=== PATIENT | female | born 1950 | race Caucasian/White ===

== ENCOUNTER 2017-06-09 07:30 | Inpatient (IN) | payer MEDICARE, MEDICAID ==
[~2017-06-09 07:30] MED LIST: Acetaminophen 500 MG Tab PO ONE; Gabapentin 300 MG Cap PO ONE; Scopolamine 1.5 MG Transdermal Patch TOP SCH; ceFAZolin 2 GM in Premix Bag 1 BAG IV ONE
[2017-06-09] MEDS ORDERED: Ketamine 500 MG/5 ML MDV IV SCH (09:00)
[2017-06-09] MEDS ORDERED: Ropivacaine 49.25 ML, Ketorolac 30 MG, EPINEPHrine 0.5 MG, cloNIDine 80 MCG, Sodium Chl... INJECT ONE ×5 (09:00)
[2017-06-09] MEDS ORDERED: Tranexamic Acid 3,000 MG, Sodium Chloride 0.9% 100 ML TOP SCH ×2 (09:00)
[2017-06-09] MEDS ORDERED: Gentamicin 40 MG/ML 2 ML Vial ONE (10:02)
[2017-06-09] MEDS ORDERED: Povidone-Iodine 10% Soln 118.25 ML Bottle ONE (10:02)
[2017-06-09] MEDS: Lactated Ringers 1,000 ML IV SCH (10:13)
[2017-06-09] MEDS ORDERED: Vancomycin 1 GM SDV ONE (11:05)
[2017-06-09] MEDS ORDERED: Midazolam 1 MG/ML 2 ML SDV ONE (12:32)
[2017-06-09] MEDS ORDERED: Propofol 200 MG/20 ML SDV ONE ×2 (12:32→14:54)
[2017-06-09] MEDS ORDERED: fentaNYL 100 MCG/2 ML SDV ONE (12:32)
[2017-06-09] MEDS ORDERED: Lactated Ringers 1,000 ML ONE (14:11)
[2017-06-09] MEDS ORDERED: ePHEDrine 50 MG/ML SDV ONE (14:24)
[2017-06-09] MEDS ORDERED: Aluminum Hydroxide/Magnesium Hydroxide/Simethicone Susp 30 ML Cup PO PRN (15:37)
[2017-06-09] MEDS ORDERED: Morphine 2 MG/ML Syringe IVPUSH PRN (15:37)
[2017-06-09] MEDS ORDERED: traMADol 50 MG Tab PO PRN (15:37)
[2017-06-09] MEDS ORDERED: Naloxone 0.4 MG/ML SDV IVPUSH PRN (15:37)
[2017-06-09] MEDS ORDERED: diphenhydrAMINE 50 MG/ML SDV IVPUSH PRN (15:37)
[2017-06-09] MEDS ORDERED: Zolpidem 5 MG Tab PO PRN (15:37)
[2017-06-09] MEDS ORDERED: ceFAZolin 2 GM in Sodium Chloride 0.9% 50 ML IV SCH (15:45)
[2017-06-09] MEDS ORDERED: Acetaminophen 1,000 MG in Premix Bag 1 BAG IV ONE (16:00)
[2017-06-09] MEDS ORDERED: Diazepam 5 MG Tab PO PRN (16:36)
[2017-06-09] MEDS: oxyCODONE 5 MG Tab PO PRN ×2 (17:47→21:49)
[2017-06-09] MEDS: Ondansetron 4 MG/2 ML SDV IVPUSH PRN (19:11)
--- NOTE | 2017-06-09 20:03 | OR ---
DATE OF PROCEDURE: 06/09/2017 PREOPERATIVE DIAGNOSIS: Left hip osteoarthritis, primary. POSTOPERATIVE DIAGNOSIS: Left hip osteoarthritis, primary. PROCEDURE: Left hip, total hip arthroplasty. RV DETAILER: JOSE MARTIN Hung. Physician processing assistant, Katty Mao NP, played an essential role in assisting in this case, helping to position the patient, retract structures as needed, as well as suturing and cutting sutures as indicated. Her presence improved patient's safety and decreased operative time. ANESTHESIA: Spinal plus conscious sedation. FLUID: Lactated Ringer solution. ESTIMATED BLOOD LOSS: 50 mL. COMPLICATIONS: None. SPECIMEN: None. DISCHARGE DISPOSITION: Stable to PACU. INSTRUMENTATION: Biomet G7 acetabular shell, 48 mm C, two 6.5 x 20 mm screws, a G7 acetabular liner neutral with E1 antioxidant 32 mm C, a Taper Lock complete micro primary femoral porous-coated stem reduced distal, 13 x 111 standard offset type 1 taper, cementless and a -3 mm x 32 mm neck. INDICATIONS: The patient was seen preoperatively in the clinic. She had failed nonoperative treatment. Risks and benefits of the procedure were explained to the patient. Informed consent was obtained. Preoperative imaging confirmed the above-mentioned diagnosis. DESCRIPTION OF PROCEDURE: The patient was seen preoperatively by myself and the Anesthesia Staff in the preop holding area where the operative site was marked. She was brought to the operative suite by Anesthesia Staff where spinal anesthesia plus conscious sedation was administered. All extremities were well padded. She was placed into a right lateral recumbent position on a pegboard. All extremities were found to be well padded. The left lower extremity was then prepped and draped in a sterile manner. Time-out was called identifying the correct patient, the correct procedure, the correct site, and antibiotics had begun within appropriate period of time. An incision was made 5 cm proximal to the greater trochanter, 5 cm distally along the femoral shaft just anteriorly and then carried down to the deep fascia. Bleeding was controlled with Bovie electrocautery and an Aquamantys during the case. The Gelpi was used for retraction. I then went through the gluteus medius, gluteus minimus, and capsule with Bovie electrocautery from the level of lesser trochanter up to the greater trochanter. I then put sharp Homans on each side of the femoral neck and then went through the capsule longitudinally up to the level of the acetabulum. I then protected the femoral neck with two sharp Homans and then made two saw cuts. I then removed the portion of the neck and then used a corkscrew to remove the femoral head which measured 45 mm, which was consistent with my preoperative templating. I then removed some soft tissue from inside the fovea with a curette as well as rongeurs. I then removed part of the labrum with a deep 10 blade. I then started using a 40 mm reamer down to the medial wall and then sequentially reamed up to 47. We then copiously irrigated with saline and then trialed with a 48 and then placed my final implant and then placed drill two 20 mm screws and then placed a 20 mm screws. After this had been completed, I placed the liner and tapped it into place. After this had been performed, we copiously irrigated again with saline. I then externally rotated the hip and flexed slightly. I then exposed the greater trochanter, used a curette to enter the canal, and then used a box hinge and lock attacher to remove any lateral bone near the greater trochanter. I then used a canal reamer to find the canal and then sequentially broached up to a 13. I felt this was adequate without any motion and then I trialed with a -3 neck. This provided excellent stability with no shuck. I then removed all of my femoral components, copiously irrigated with saline, and then placed my final components in place. This provided excellent range of motion with excellent stability and no shuck as well. We then closed the capsule with #5 Ethibond as well as the gluteus medius and minimus. Then, closed the IT band with #2 STRATAFIX, deep subcuticulars with #1 STRATAFIX, and subcutaneous 3-0 STRATAFIX followed by skin hai, followed by a sterile dressing. The patient was then transferred to hospital bed in supine position and taken to the PACU in stable condition. Anton Fraire DO /[id number]
[2017-06-09] MEDS: ceFAZolin 2 GM in Premix Bag 1 BAG IV SCH (20:08)
[2017-06-09] MEDS ORDERED: Docusate Sodium 100 MG Cap PO SCH (21:00)
[2017-06-09] MEDS ORDERED: Magnesium Hydroxide 400 MG/5 ML Susp 30 ML Cup PO SCH (21:00)
[2017-06-09] MEDS ORDERED: Sennosides 8.6 MG Tab PO SCH (21:00)
[2017-06-09] MEDS: Docusate Sodium 100 MG Cap PO SCH (21:50)
[2017-06-09] MEDS: Sennosides 8.6 MG Tab PO SCH (21:50)
[2017-06-09] MEDS: Magnesium Hydroxide 400 MG/5 ML Susp 30 ML Cup PO SCH (21:50)
[2017-06-10] MEDS ORDERED: Lactated Ringers 500 ML IV SCH (00:30)
[2017-06-10] MEDS: Lactated Ringers 1,000 ML IV SCH (03:09)
[2017-06-10] MEDS: Ketorolac 30 MG/ML SDV IVPUSH PRN ×2 (03:18→12:21)
[2017-06-10] MEDS: ceFAZolin 2 GM in Premix Bag 1 BAG IV SCH ×2 (04:15→12:26)
[2017-06-10] MEDS: oxyCODONE 5 MG Tab PO PRN ×2 (07:31→14:09)
[2017-06-10] MEDS ORDERED: Sodium Chloride 0.9% 10 ML Syringe FLUSH SCH (09:00)
[2017-06-10] MEDS ORDERED: Lactated Ringers 500 ML IV ONE (09:00)
[2017-06-10] MEDS ORDERED: Bisacodyl 5 MG Tab PO SCH (09:00)
--- NOTE | 2017-06-10 09:32 | CR ---
Pelvis 1V or 2V INDICATION: post op COMPARISON: 05/06/2017 FINDINGS: Single AP view of the pelvis left up arthroplasty new since the prior study. Skin hai in place. No acute bony abnormalities.
[2017-06-10] MEDS: Magnesium Hydroxide 400 MG/5 ML Susp 30 ML Cup PO SCH ×2 (10:33→22:20)
[2017-06-10] MEDS: Sennosides 8.6 MG Tab PO SCH ×2 (10:33→22:21)
[2017-06-10] MEDS: Docusate Sodium 100 MG Cap PO SCH ×2 (10:33→22:20)
[2017-06-10] MEDS: Aspirin 325 MG Tab.EC PO SCH (10:33)
[2017-06-10] MEDS: Sodium Chloride 0.9% 10 ML Syringe FLUSH SCH (10:34)
[2017-06-10] MEDS: Bisacodyl 5 MG Tab PO SCH (10:34)
[2017-06-10] MEDS: Ondansetron 4 MG/2 ML SDV IVPUSH PRN (13:24)
[2017-06-10] MEDS ORDERED: Aspirin 325 MG Tab.EC PO SCH (15:38)
[2017-06-10] MEDS: Acetaminophen/oxyCODONE 325-5 MG Tab PO PRN (19:53)
[2017-06-11] MEDS: Acetaminophen/oxyCODONE 325-5 MG Tab PO PRN ×2 (03:28→07:37)
[2017-06-11] MEDS: Ketorolac 30 MG/ML SDV IVPUSH PRN (06:19)
[2017-06-11] MEDS: Docusate Sodium 100 MG Cap PO SCH (08:51)
[2017-06-11] MEDS: Magnesium Hydroxide 400 MG/5 ML Susp 30 ML Cup PO SCH (08:51)
[2017-06-11] MEDS: Bisacodyl 5 MG Tab PO SCH (08:51)
[2017-06-11] MEDS: Aspirin 325 MG Tab.EC PO SCH (08:51)
[2017-06-11] MEDS: Sodium Chloride 0.9% 10 ML Syringe FLUSH SCH (08:51)
[2017-06-11] MEDS: Sennosides 8.6 MG Tab PO SCH (08:52)
--- NOTE | 2017-06-11 09:30 | PCM.DCSUM1 ---
Discharge Summary - Hospital Course Free Text/Narrative:: Patient is doing well at this time. She is POD 2 of a right total hip replacement. Pain is under control at this time. She is ambulating without any difficulties. - Discharge Data Discharge Date: 06/11/17 Discharge Disposition: Home, Self-Care 01 Condition: Good - Patient Summary/Data Consults: Consultations 06/09/17 15:38 OT Evaluation and Treatment [CONS] Routine Please Evaluate and Treat. OT Reason for Consult: Strengthening This query below is only for informational purposes and is not editable. PT Evaluation and Treatment [CONS] Routine Please Evaluate and Treat. PT Reason for Consult: Strengthening This query below is only for informational purposes and is not editable. - Patient Instructions Diet: Usual Diet as Tolerated Activity: Apply Ice, As Tolerated Driving: Do Not Drive Showering/Bathing: May Shower, No Tub Bathing/Swimming Wound/Incision Care: Keep Operative Site/Wound Site Clean and Dry, Change Dressing Daily Notify Provider of: Fever, Increased Pain, Swelling and Redness, Drainage, Nausea and/or Vomiting - Discharge Plan Prescriptions/Med Rec: Acetaminophen/oxyCODONE [Percocet 325-5 MG] 1 tab PO Q6HR #90 tablet Aspirin [Ecotrin] 325 mg PO DAILY #30 tab.ec Diazepam [Valium] 5 mg PO Q6H PRN #20 tablet PRN Reason: Spasms Docusate Sodium [Colace] 100 mg PO BID #30 cap Home Medications: Home Meds Ibuprofen 800 mg PO DAILY PRN 05/05/17 [History] Acetaminophen/oxyCODONE [Percocet 325-5 MG] 1 tab PO Q6HR #90 tablet 06/11/17 [ Rx] Aspirin [Ecotrin] 325 mg PO DAILY #30 tab.ec 06/11/17 [Rx] Diazepam [Valium] 5 mg PO Q6H PRN #20 tablet 06/11/17 [Rx] Docusate Sodium [Colace] 100 mg PO BID #30 cap 06/11/17 [Rx] Referrals: Katty Mao, [employer] [Nurse Practitioner] - (3 week follow up) - Patient Data Vitals - Most Recent: Last Vital Signs Temp 36.8 C 06/11/17 07:00 Pulse 88 06/11/17 07:00 Resp 18 06/11/17 07:00 BP 104/64 06/11/17 07:00 Pulse Ox 96 06/11/17 07:00 Weight - Most Recent: 117 lb 11.206 oz I&O - Last 24 hours: Intake & Output 06/10/17 06/11/17 06/11/17 22:59 06:59 14:59 Intake Total 600 780 240 Output Total 1100 300 650 Balance -500 480 -410 Lab Results - Last 24 hrs: Laboratory Results - last 24 hr 06/11/17 06/11/17 Range/Units 05:47 05:47 WBC 9.4 (4.5-11.0) K/uL RBC 3.08 L (3.30-5.50) M/uL Hgb 8.9 L (12.0-15.0) g/dL Hct 27.4 L (36.0-48.0) % MCV 89 (80-98) fL MCH 29 (27-31) pg MCHC 33 (32-36) % Plt Count 198 (150-400) K/uL Neut % (Auto) 80 H (36-66) % Lymph % (Auto) 10 L (24-44) % Anson % (Auto) 9 H (2-6) % Eos % (Auto) 1 L (2-4) % Baso % (Auto) 0 (0-1) % Sodium 139 L (140-148) mmol/L Potassium 4.2 (3.6-5.2) mmol/L Chloride 104 (100-108) mmol/L Carbon Dioxide 30 (21-32) mmol/L Anion Gap 9.2 (5.0-14.0) mmol/L BUN 7 (7-18) mg/dL Creatinine 0.7 (0.6-1.0) mg/dL Est Cr Clr Drug Dosing 56.02 mL/min Estimated GFR (MDRD) > 60 (>60) Glucose 119 H (74-106) mg/dL Calcium 8.3 L (8.5-10.1) mg/dL Total Bilirubin 0.6 (0.2-1.0) mg/dL AST 32 (15-37) U/L ALT 16 (12-78) U/L Alkaline Phosphatase 56 (46-116) U/L Total Protein 5.1 L (6.4-8.2) g/dL Albumin 2.7 L (3.4-5.0) g/dL Globulin 2.4 (2.3-3.5) g/dL Albumin/Globulin Ratio 1.1 L (1.2-2.2) Med Orders - Current: Current Medications Al Hydroxide/Mg Hydroxide (Mag-Al Plus) 30 ml PO Q4H PRN PRN Reason: Constipation Aspirin (Ecotrin) 325 mg PO DAILY [facility] Last Admin: 06/11/17 08:51 Dose: 325 mg Bisacodyl (Dulcolax) 10 mg PO DAILY [facility] Last Admin: 06/11/17 08:51 Dose: Not Given Diazepam (Valium.) 5 mg PO Q6H PRN PRN Reason: Spasms Last Admin: 06/10/17 10:36 Dose: 5 mg Diphenhydramine HCl (Benadryl) 25 mg IVPUSH Q4H PRN PRN Reason: Itching Docusate Sodium (Colace) 100 mg PO BID [facility] Last Admin: 06/11/17 08:51 Dose: Not Given Ketorolac Tromethamine (Toradol) 15 mg IVPUSH Q8H PRN PRN Reason: Pain Stop: 06/14/17 15:38 Last Admin: 06/11/17 06:19 Dose: 15 mg Magnesium Hydroxide (Milk Of Magnesia) 30 ml PO BID [facility] Last Admin: 06/11/17 08:51 Dose: Not Given Morphine Sulfate (Morphine) 2 mg IVPUSH Q2H PRN PRN Reason: Pain Ondansetron HCl (Zofran) 8 mg IVPUSH Q4H PRN PRN Reason: Nausea/Vomiting Last Admin: 06/10/17 13:24 Dose: 8 mg Oxycodone/Acetaminophen (Percocet 325-5 Mg) 2 tab PO Q4H PRN PRN Reason: Pain Last Admin: 06/11/17 07:37 Dose: 2 tab Senna (Senna) 8.6 mg PO BID [facility] Last Admin: 06/11/17 08:52 Dose: Not Given Sodium Chloride (Saline Flush) 10 ml FLUSH DAILY [facility] Last Admin: 06/11/17 08:51 Dose: 10 ml Tramadol HCl (Ultram) 100 mg PO Q6H PRN PRN Reason: Pain Zolpidem Tartrate (Ambien) 5 mg PO BEDTIME PRN PRN Reason: Sleep Discontinued Medications Acetaminophen (Tylenol Extra Strength) 1,000 mg PO ONETIME ONE Stop: 06/09/17 07:31 Last Admin: 06/09/17 08:53 Dose: 1,000 mg Aspirin (Ecotrin) 325 mg PO DAILY [facility] Bisacodyl (Dulcolax) 10 mg PO DAILY [facility] Ropivacaine 49.25 ml/Ketorolac Tromethamine 30 mg/Epinephrine HCl 0.5 mg/ Clonidine HCl 80 mcg/ Sodium Chloride 48.45 ml 0 ml INJECT ONETIME ONE Stop: 06/09/17 09:01 Last Admin: 06/09/17 14:52 Dose: 100 ml Tranexamic Acid 3,000 mg/ (Sodium Chloride 100 ml) 0 mg TOP ASDIRECTED [facility] Stop: 06/09/17 09:01 Last Admin: 06/09/17 14:53 Dose: 100 bag Diazepam (Valium) 5 mg IVPUSH Q6H PRN PRN Reason: Spasms Docusate Sodium (Colace) 100 mg PO BID [facility] Ephedrine Sulfate (Ephedrine Sulfate) Confirm Administered Dose 50 mg .ROUTE .STK-MED ONE Stop: 06/09/17 14:25 Fentanyl (Sublimaze) Confirm Administered Dose 100 mcg .ROUTE .STK-MED ONE Stop: 06/09/17 12:33 Gabapentin (Neurontin) 300 mg PO ONETIME ONE Stop: 06/09/17 07:31 Last Admin: 06/09/17 08:54 Dose: 300 mg Gentamicin Sulfate (Gentamicin) Confirm Administered Dose 240 mg .ROUTE .STK- MED ONE Stop: 06/09/17 10:03 Last Admin: 06/09/17 14:27 Dose: 240 mg Cefazolin Sodium 2 gm/ Premix 20 mls @ 350 mls/hr IV ONETIME ONE Stop: 06/09/17 07:33 Last Admin: 06/09/17 13:30 Dose: 350 mls/hr Lactated Ringer's (Ringers, Lactated) 1,000 mls @ 0 mls/hr IV ASDIRECTED [facility] PRN Reason: KVO Last Admin: 06/10/17 03:09 Dose: 25 mls/hr Lactated Ringer's (Ringers, Lactated) Confirm Administered Dose 1,000 mls @ as directed .ROUTE .STK-MED ONE Stop: 01/03/18 14:12 Acetaminophen 1,000 mg/ Premix 100 mls @ 400 mls/hr IV NOW ONE Stop: 06/09/17 16:14 Last Admin: 06/09/17 16:08 Dose: 400 mls/hr Cefazolin Sodium 2 gm/ Sodium (Chloride) 50 mls @ 100 mls/hr IV Q8H [facility] Stop: 06/10/17 08:14 Last Admin: 06/09/17 17:00 Dose: Not Given Cefazolin Sodium/Dextrose 2 gm (/ Premix) 50 mls @ 100 mls/hr IV Q8H [facility] Stop: 06/10/17 12:59 Last Admin: 06/10/17 12:26 Dose: 100 mls/hr Lactated Ringer's (Ringers, Lactated) 500 mls @ 500 mls/hr IV .BOLUS [facility] Last Admin: 06/10/17 00:25 Dose: 500 mls/hr Lactated Ringer's (Ringers, Lactated) 500 mls @ 500 mls/hr IV .BOLUS ONE Stop: 06/10/17 09:59 Last Admin: 06/10/17 08:45 Dose: 500 mls/hr Ketamine HCl (Ketalar) 23 mg IV ASDIRECTED [facility] Magnesium Hydroxide (Milk Of Magnesia) 30 ml PO BID [facility] Midazolam HCl (Versed 1 Mg/Ml) Confirm Administered Dose 2 mg .ROUTE .STK-MED ONE Stop: 06/09/17 12:33 Naloxone HCl (Narcan) 0.1 mg IVPUSH ASDIRECTED PRN PRN Reason: Oversedation Stop: 06/10/17 15:38 Oxycodone HCl (Oxycodone) 10 mg PO Q4H PRN PRN Reason: Pain Stop: 06/10/17 15:38 Last Admin: 06/10/17 14:09 Dose: 10 mg Povidone Iodine (Betadine 10% Soln) Confirm Administered Dose 1 ml .ROUTE .STK- MED ONE Stop: 06/09/17 10:03 Last Admin: 06/09/17 14:30 Dose: 1 ml Propofol (Diprivan 20 Ml) Confirm Administered Dose 200 mg .ROUTE .STK-MED ONE Stop: 06/09/17 12:33 Propofol (Diprivan 20 Ml) Confirm Administered Dose 200 mg .ROUTE .STK-MED ONE Stop: 06/09/17 14:55 Scopolamine (Transderm-Scop) 1.5 mg TOP Q72H [facility] Stop: 06/11/17 07:00 Last Admin: 06/09/17 08:54 Dose: 1.5 mg Senna (Senna) 8.6 mg PO BID [facility] Sodium Chloride (Saline Flush) 10 ml FLUSH DAILY [facility] Vancomycin HCl (Vancomycin) Confirm Administered Dose 1 gm .ROUTE .K-MED ONE Stop: 06/09/17 11:06 *Q Meaningful Use (DIS) - VTE *Q VTE Criteria *Q: - Stroke *Q Stroke Criteria *Q: - AMI *Q AMI Criteria *Q:
== END 2017-06-11 14:15 | disposition home or self-care (01) | DRG 470 ==
LOC: EDSTATUS 07:30 → JP.SDS 08:23 → JP.SDSSCHI 08:23 → JP.MS 16:20
PROVIDERS: ADMIT Orthopaedic Surgery; ATTEND Orthopaedic Surgery
PROC: 0SRB0JA Replacement of Left Hip Joint with Synthetic Substitute, Uncemented, Open Approach (ICD-10-PCS; principal; 2017-06-09)
DX: M16.12 Unilateral primary osteoarthritis, left hip (principal); Z79.82 Long term (current) use of aspirin
CPT/HCPCS: 36415; 72170; 72170-26; 80053; 85025; 86850; 86900; 86901; 94762; 97110-GP; 97116-GP; 97161-GP; 97165-GO; 97530-GP; A9270-GY; C1776; J0131; J0690; J1580; J1885; J2250; J2405; J2704; J2795; J3010; J3370; J7050; J7120

== ENCOUNTER 2019-09-04 16:18 | Emergency (ER) | payer MEDICAID, MEDICARE ==
[2019-09-04] MEDS ORDERED: Aspirin 81 MG Tab.Chew PO ONE (16:34)
[2019-09-04] MEDS ORDERED: Nitroglycerin 0.4 MG Tab.SL SL PRN (16:34)
[2019-09-04] MEDS ORDERED: Sodium Chloride 0.9% 10 ML Syringe FLUSH PRN (16:34)
--- NOTE | 2019-09-04 16:38 | EDM.PDOC ---
<OfficerBryan - Last Filed: 09/04/19 16:35> ED HPI GENERAL MEDICAL PROBLEM - General Chief Complaint: Chest Pain Stated Complaint: TIGHT CHEST Time Seen by Provider: 09/04/19 16:28 Source of Information: Reports: Patient, RN Notes Reviewed History Limitations: Reports: No Limitations - History of Present Illness INITIAL COMMENTS - FREE TEXT/NARRATIVE: 68-year-old female presents emergency department a complaint of chest pressure, she has no known cardiac history she states about 2 hours prior to admission started having chest pressure rating it 10 out of 10 with palpitations she did feel diaphoretic no nausea or vomiting no shortness of breath at this time she feels her chest pressure is now 6 out of 10 she is not taking anything Chest Pain Score (Numeric/FACES): 10 - Related Data Allergies Allergy/AdvReac Type Severity Reaction Status Date / Time latex Allergy Redness Verified 09/04/19 16:35 Penicillins Allergy Other Verified 09/04/19 16:35 Home Meds: Home Meds NK [No Known Home Meds] 09/04/19 [History] Past Medical History HEENT History: Reports: Cataract, Impaired Vision Other HEENT History: wears glasses Musculoskeletal History: Reports: Other (See Below) Other Musculoskeletal History: Left hip pain Psychiatric History: Reports: Bipolar, Other (See Below) Other Psychiatric History: 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 Dermatologic History: Reports: None - Infectious Disease History Infectious Disease History: Reports: Chicken Pox, Measles, Mumps - Past Surgical History HEENT Surgical History: Reports: Tonsillectomy Female Surgical History: Reports: Breast Biopsy, Tubal Ligation Neurological Surgical History: Reports: Other (See Below) Other Neurological Surgeries/Procedures: needle biopsy in back Musculoskeletal Surgical History: Reports: Hip Replacement Dermatological Surgical History: Reports: Skin Biopsy Social & Family History - Family History Respiratory: Reports: COPD : Reports: Renal Disease/Insufficiency Neurological: Reports: Dementia Psychiatric: Reports: Anxiety, Bipolar, Depression, Psych Hospitalization(s), Psychosis, PTSD Oncologic: Reports: Lung - Caffeine Use Caffeine Use: Reports: None ED ROS GENERAL - Review of Systems Review Of Systems: See Below Constitutional: Reports: Diaphoresis HEENT: Reports: No Symptoms Respiratory: Reports: Shortness of Breath Cardiovascular: Reports: Chest Pain, Palpitations GI/Abdominal: Reports: No Symptoms : Reports: No Symptoms Musculoskeletal: Reports: No Symptoms ED EXAM, GENERAL - Physical Exam Exam: See Below Exam Limited By: No Limitations General Appearance: Alert, WD/WN, No Apparent Distress Throat/Mouth: Normal Inspection, Normal Lips, Normal Teeth, Normal Gums, Normal Oropharynx, Normal Voice, No Airway Compromise Head: Atraumatic, Normocephalic Neck: Normal Inspection, Supple, Non-Tender, Full Range of Motion Respiratory/Chest: No Respiratory Distress, Lungs Clear, Normal Breath Sounds, No Accessory Muscle Use, Chest Non-Tender Cardiovascular: Regular Rate, Rhythm, No Murmur GI/Abdominal: Soft, Non-Tender Extremities: Normal Inspection, Non-Tender, No Pedal Edema Course - Vital Signs Last Recorded V/S: Last Vital Signs Temp 35.6 C L 09/04/19 16:32 Pulse 74 09/04/19 21:05 Resp 11 L 09/04/19 21:05 BP 124/72 09/04/19 21:05 Pulse Ox 96 09/04/19 21:05 - Orders/Labs/Meds Orders: Active Orders 24 hr Category Date Time Status Cardiac Monitoring [RC] .As Directed Care 09/04/19 16:34 Active EKG Documentation Completion [RC] ASDIRECTED Care 09/04/19 16:35 Active EKG Documentation Completion [RC] ASDIRECTED Care 09/04/19 17:01 Active EKG Documentation Completion [RC] ASDIRECTED Care 09/04/19 17:01 Active Peripheral IV Care [RC] . DIRECTED Care 09/04/19 16:35 Active Chest 1V Frontal [CR] Stat Exams 09/04/19 16:35 Taken Nitroglycerin [Nitrostat] Med 09/04/19 16:34 Active 0.4 mg SL Q5M PRN Sodium Chloride 0.9% [Saline Flush] Med 09/04/19 16:34 Active 10 ml FLUSH ASDIRECTED PRN Peripheral IV Insertion Adult [OM.PC] Stat Oth 09/04/19 16:34 Ordered Saline Lock Insert [OM.PC] Stat Oth 09/04/19 16:34 Ordered EKG 12 Lead [EK] Stat Ther 09/04/19 16:35 Ordered EKG 12 Lead [EK] Stat Ther 09/04/19 17:00 Ordered EKG 12 Lead [EK] Stat Ther 03/30/20 17:01 Ordered Medication Orders Nitroglycerin (Nitrostat) 0.4 mg SL Q5M PRN PRN Reason: Chest Pain Stop: 09/05/19 16:34 Last Admin: 09/04/19 16:47 Dose: 0.4 mg Sodium Chloride (Saline Flush) 10 ml FLUSH ASDIRECTED PRN PRN Reason: Keep Vein Open Last Admin: 09/04/19 16:49 Dose: 10 ml Labs: Laboratory Tests 09/04/19 09/04/19 09/04/19 Range/Units 16:30 16:34 16:45 WBC 8.8 (4.5-11.0) K/uL RBC 4.42 (3.30-5.50) M/uL Hgb 13.0 D (12.0-15.0) g/dL Hct 38.5 (36.0-48.0) % MCV 87 (80-98) fL MCH 29 (27-31) pg MCHC 34 (32-36) % Plt Count 283 (150-400) K/uL Neut % (Auto) 54 (36-66) % Lymph % (Auto) 37 (24-44) % Floyd % (Auto) 6 (2-6) % Eos % (Auto) 2 (2-4) % Baso % (Auto) 1 (0-1) % ESR 10 (0-25) mm/hr D-Dimer, Quantitative (0.0-400.0) ng/mL Sodium 141 (140-148) mmol/L Potassium 3.8 (3.6-5.2) mmol/L Chloride 104 (100-108) mmol/L Carbon Dioxide 25 (21-32) mmol/L Anion Gap 12.3 (5.0-14.0) mmol/L BUN 14 D (7-18) mg/dL Creatinine 0.7 (0.6-1.0) mg/dL Est Cr Clr Drug Dosing TNP Estimated GFR (MDRD) > 60 (>60) Glucose 89 (74-106) mg/dL Calcium 9.3 (8.5-10.1) mg/dL Total Bilirubin 0.4 (0.2-1.0) mg/dL AST 16 (15-37) U/L ALT 22 (12-78) U/L Alkaline Phosphatase 88 (46-116) U/L Troponin I < 0.017 (0.000-0.056) ng/mL C-Reactive Protein (0.0-0.3) mg/dL Total Protein 6.8 (6.4-8.2) g/dL Albumin 3.9 (3.4-5.0) g/dL Globulin 2.9 (2.3-3.5) g/dL Albumin/Globulin Ratio 1.3 (1.2-2.2) 09/04/19 09/04/19 09/04/19 Range/Units 16:45 19:20 21:35 WBC (4.5-11.0) K/uL RBC (3.30-5.50) M/uL Hgb (12.0-15.0) g/dL Hct (36.0-48.0) % MCV (80-98) fL MCH (27-31) pg MCHC (32-36) % Plt Count (150-400) K/uL Neut % (Auto) (36-66) % Lymph % (Auto) (24-44) % Floyd % (Auto) (2-6) % Eos % (Auto) (2-4) % Baso % (Auto) (0-1) % ESR (0-25) mm/hr D-Dimer, Quantitative < 100 (0.0-400.0) ng/mL Sodium (140-148) mmol/L Potassium (3.6-5.2) mmol/L Chloride (100-108) mmol/L Carbon Dioxide (21-32) mmol/L Anion Gap (5.0-14.0) mmol/L BUN (7-18) mg/dL Creatinine (0.6-1.0) mg/dL Est Cr Clr Drug Dosing Estimated GFR (MDRD) (>60) Glucose (74-106) mg/dL Calcium (8.5-10.1) mg/dL Total Bilirubin (0.2-1.0) mg/dL AST (15-37) U/L ALT (12-78) U/L Alkaline Phosphatase (46-116) U/L Troponin I < 0.017 (0.000-0.056) ng/mL C-Reactive Protein < 0.05 (0.0-0.3) mg/dL Total Protein (6.4-8.2) g/dL Albumin (3.4-5.0) g/dL Globulin (2.3-3.5) g/dL Albumin/Globulin Ratio (1.2-2.2) Meds: Medications Generic Name Dose Route Start Last Admin Trade Name Freq PRN Reason Stop Dose Admin Nitroglycerin 0.4 mg 09/04/19 16:34 09/04/19 16:47 Nitrostat SL 09/05/19 16:34 0.4 mg Q5M PRN Administration Chest Pain Sodium Chloride 10 ml 09/04/19 16:34 09/04/19 16:49 Saline Flush FLUSH 10 ml ASDIRECTED PRN Administration Keep Vein Open Discontinued Medications Generic Name Dose Route Start Last Admin Trade Name Freq PRN Reason Stop Dose Admin Aspirin 324 mg 09/04/19 16:34 09/04/19 16:46 Aspirin PO 09/04/19 16:35 324 mg ONETIME ONE Administration Diltiazem HCl Confirm 09/04/19 16:51 09/04/19 17:06 Diltiazem Administered 09/04/19 16:52 Not Given Dose 25 mg .ROUTE .STK-MED ONE Diltiazem HCl 20 mg 09/04/19 16:59 09/04/19 16:53 Diltiazem IVPUSH 09/04/19 17:00 20 mg ONETIME ONE Administration Fentanyl 100 mcg 09/04/19 20:23 09/04/19 20:32 Sublimaze IVPUSH 09/04/19 20:24 100 mcg ONETIME ONE Administration Morphine Sulfate 4 mg 09/04/19 20:22 Morphine IVPUSH 09/04/19 20:23 ONETIME ONE Nitroglycerin 0.4 mg 09/04/19 20:53 09/04/19 21:02 Nitrostat SL 09/04/19 20:54 0.4 mg ONETIME ONE Administration Departure - Departure Disposition: DC/Tfer to Acute Hospital 02 Clinical Impression: Chest pain Qualifiers: Chest pain type: other chest pain Qualified Code(s): R07.89 - Other chest pain ; R07.8 - Other chest pain Referrals: PCP,None [Primary Care Provider] - Forms: ED Department Discharge Sepsis Event Note - Evaluation Sepsis Screening Result: No Definite Risk - Focused Exam Vital Signs: Vital Signs Temp Pulse Resp BP BP Pulse Ox 09/04/19 21:05 74 11 L 124/72 96 09/04/19 21:04 81 11 L 119/77 95 09/04/19 21:02 153/84 H 09/04/19 21:00 74 12 153/84 H 97 09/04/19 20:45 77 156/77 H 97 09/04/19 20:30 78 160/91 H 97 09/04/19 20:15 69 146/82 H 97 09/04/19 20:00 71 172/76 H 97 09/04/19 19:45 73 158/86 H 95 09/04/19 19:30 79 153/78 H 97 09/04/19 19:15 70 125/75 98 09/04/19 19:00 69 146/78 H 09/04/19 18:45 64 138/71 09/04/19 18:28 69 15 134/79 97 09/04/19 18:04 69 13 116/68 97 09/04/19 17:32 72 12 128/76 97 09/04/19 17:13 80 10 L 149/79 H 95 09/04/19 16:47 192/107 H 09/04/19 16:43 80 27 H 182/97 H 99 09/04/19 16:32 35.6 C L 81 21 H 182/100 H 100 09/04/19 16:27 35.6 C L 81 21 H 182/100 H 100 Date Exam was Performed: 09/04/19 Time Exam was Performed: 16:35 <Brayden Levi - Last Filed: 09/04/19 22:08> ED HPI GENERAL MEDICAL PROBLEM - History of Present Illness INITIAL COMMENTS - FREE TEXT/NARRATIVE: Has a hx about 4 yrs ago of osteomyelitis of T7, T8. Chest pain today is reproducible by using her arms and when she has the pain she is always in what looks like a wide complex rhythm. The second she stops moving and the pain goes away the complex's become narrow again. Course - Vital Signs Text/Narrative:: Case discussed with Dr. Burch at [facility], cardiology, @ 1999h. EKG's FAX' d to him to review. - Re-Assessments/Exams Free Text/Narrative Re-Assessment/Exam: 09/04/19 20:43 We gave Fentanyl 75 mcg IV per direction of Dr. Burch and had the patient move around in the bed. Once again this triggered her pain and simultaneously she demonstrated a widening of her QRS complex that later reverted back to a narrow complex when she relaxed and stopped moving. Free Text/Narrative Re-Assessment/Exam: 09/04/19 21:06 I gave NTG 0.4 mg SL while she was asymptomatic and this resulted in a drop in her BP from 153 to 119 systolic. In addition even though she was not moving at all she now developed the combination of a widening of her QRS and chest pain again. Departure - Departure Time of Disposition: 22:25 Reason for Transfer *Q: Other Condition: Fair Sepsis Event Note - Focused Exam Date Exam was Performed: 09/04/19 Time Exam was Performed: 22:07
[2019-09-04] MEDS ORDERED: Diltiazem 25 MG/5 ML SDV ONE (16:51)
[2019-09-04] MEDS ORDERED: Diltiazem 25 MG/5 ML SDV IVPUSH ONE (16:59)
[2019-09-04] MEDS ORDERED: Morphine 4 MG/ML Syringe IVPUSH ONE (20:22)
[2019-09-04] MEDS ORDERED: fentaNYL 100 MCG/2 ML SDV IVPUSH ONE (20:23)
[2019-09-04] MEDS ORDERED: Nitroglycerin 0.4 MG Tab.SL SL ONE (20:53)
--- NOTE | 2019-09-05 10:11 | CR ---
CHEST: Portable 09/04/2019 at 5:27 PM CLINICAL HISTORY:Chest pain COMPARISON:None FINDINGS: The heart size, pulmonary vascularity and hilar structures are normal. No infiltrate effusion or pneumothorax is seen. There are atherosclerotic changes in the aorta. IMPRESSION: No acute cardiopulmonary process.
== END 2019-09-04 23:15 ==
LOC: JP.ED 16:18
DX: R07.89 Other chest pain (principal); Z91.040 Latex allergy status; Z88.0 Allergy status to penicillin
CPT/HCPCS: 36415; 71045; 80053; 84484; 85025; 85379; 85651; 86140; 93005; 96374; 96375; 99285; A9270; J3010; J3490

== ENCOUNTER 2020-04-03 15:13 | Emergency (ER) | payer MEDICARE ==
[2020-04-03] MEDS ORDERED: Sodium Chloride 0.9% 10 ML Syringe FLUSH PRN (15:56)
[2020-04-03] MEDS ORDERED: Aspirin 81 MG Tab.Chew PO ONE (16:31)
--- NOTE | 2020-04-03 16:33 | EDM.PDOC ---
ED HPI GENERAL MEDICAL PROBLEM - General Chief Complaint: Chest Pain Stated Complaint: CHEST PAINS Time Seen by Provider: 04/03/20 15:45 - History of Present Illness INITIAL COMMENTS - FREE TEXT/NARRATIVE: Cuca is a 69-year-old female presenting to the ED for evaluation of acute onset of chest pain that started around 11:00 this morning. Patient took 3 sublingual nitros with some improvement in pain dropping from a 10 out of 10 to a 6 out of 10. She arrives to the ED at a 6 out of 10. She did experience some shortness of breath and nausea with the onset of pain. She does have a history significant for coronary artery disease having undergone an angiogram several months ago. She did experience dyspnea on exertion today as well. 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: Nitroglycerin - Related Data Allergies Allergy/AdvReac Type Severity Reaction Status Date / Time latex Allergy Redness Verified 09/04/19 16:35 Penicillins Allergy Other Verified 09/04/19 16:35 Home Meds: Home Meds Nitroglycerin [Nitrostat] 0.4 mg PO ASDIRECTED PRN 04/03/20 [History] Past Medical History HEENT History: Reports: Cataract, Impaired Vision Other HEENT History: wears glasses Cardiovascular History: Reports: Angina, Arrhythmia INSURANCE EXAMINER History: Reports: Musculoskeletal History: Reports: Other (See Below) Other Musculoskeletal History: Left hip pain Neurological History: Reports: Other (See Below) Other Neuro History: 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 Psychiatric History: Reports: Bipolar, Other (See Below) Other Psychiatric History: 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 Dermatologic History: Reports: None - Infectious Disease History Infectious Disease History: Reports: Chicken Pox, Measles, Mumps - Past Surgical History HEENT Surgical History: Reports: Tonsillectomy Neurological Surgical History: Reports: Other (See Below) Other Neurological Surgeries/Procedures: needle biopsy in back Musculoskeletal Surgical History: Reports: Hip Replacement Dermatological Surgical History: Reports: Skin Biopsy Social & Family History - Family History Respiratory: Reports: COPD : Reports: Renal Disease/Insufficiency Neurological: Reports: Dementia Psychiatric: Reports: Anxiety, Bipolar, Depression, Psych Hospitalization(s), Psychosis, PTSD Oncologic: Reports: Lung - Tobacco Use Tobacco Use Status *Q: Never Tobacco User - Caffeine Use Caffeine Use: Reports: Coffee Other Caffeine Use: 1 cup per day - Recreational Drug Use Recreational Drug Use: No ED ROS GENERAL - Review of Systems Review Of Systems: See Below Constitutional: Reports: No Symptoms HEENT: Reports: No Symptoms Respiratory: Reports: Shortness of Breath Cardiovascular: Reports: Chest Pain (Left-sided chest pain radiating to the left neck and back into the scapula), Dyspnea on Exertion Endocrine: Reports: No Symptoms GI/Abdominal: Reports: Nausea : Reports: No Symptoms Musculoskeletal: Reports: No Symptoms Skin: Reports: No Symptoms Neurological: Reports: No Symptoms Psychiatric: Reports: No Symptoms Hematologic/Lymphatic: Reports: No Symptoms Immunologic: Reports: No Symptoms ED EXAM, GENERAL - Physical Exam Exam: See Below Exam Limited By: No Limitations General Appearance: Alert, Anxious, Mild Distress Eye Exam: Bilateral Eye: EOMI, PERRL Throat/Mouth: Normal Inspection, Normal Lips, Normal Oropharynx, Normal Voice, No Airway Compromise Head: Atraumatic, Normocephalic Neck: Normal Inspection, Supple, Non-Tender, Full Range of Motion Respiratory/Chest: No Respiratory Distress, Lungs Clear, Normal Breath Sounds, No Accessory Muscle Use, Chest Non-Tender Cardiovascular: Normal Peripheral Pulses, Regular Rate, Rhythm, No Edema, No JVD, No Murmur Peripheral Pulses: 2+: Radial (L), Radial (R), Posterior Tibial (L), Posterior Tibial (R) GI/Abdominal: Normal Bowel Sounds, Soft, Non-Tender, No Distention Back Exam: Normal Inspection, Full Range of Motion, NT Extremities: Normal Inspection, Normal Range of Motion, Non-Tender, Normal Capillary Refill, No Pedal Edema Neurological: Alert, Oriented, CN II-XII Intact, Normal Cognition, No Motor/Sensory Deficits Psychiatric: Normal Affect, Normal Mood Skin Exam: Warm, Dry, Intact Lymphatic: No Adenopathy #1 Interpretation EKG Date: 04/03/20 Time: 15:13 Rhythm: NSR Seguin: Normal P-Wave: Present QRS: Normal ST-T: Other (Borderline ST-T changes with T wave flattening in V3, I and aVL) QT: Normal Course - Vital Signs Last Recorded V/S: Last Vital Signs Temp 36.6 C 04/03/20 15:20 Pulse 67 04/03/20 16:44 Resp 12 04/03/20 16:44 BP 166/85 H 04/03/20 16:44 Pulse Ox 98 04/03/20 16:44 - Orders/Labs/Meds Orders: Active Orders 24 hr Category Date Time Status EKG Documentation Completion [RC] ASDIRECTED Care 04/03/20 15:55 Active Chest 2V [CR] Stat Exams 04/03/20 15:54 Taken Heparin Sodium/D5W [Heparin 25,000 Units in D5W 500 ML] Med 04/03/20 16:45 Active 25,000 units in 500 ml IV TITRATE Nitroglycerin/D5W [Nitroglycerin 25 MG/D5W 250 ML] Med 04/03/20 17:00 Active 25 mg in 250 ml IV TITRATE Sodium Chloride 0.9% [Saline Flush] Med 04/03/20 15:56 Active 10 ml FLUSH ASDIRECTED PRN Saline Lock Insert [OM.PC] Routine Oth 04/03/20 15:56 Ordered EKG 12 Lead [EK] Routine Ther 04/03/20 15:54 Ordered Medication Orders Heparin Sodium/Dextrose (Heparin 25,000 Units In D5w 500 Ml) 25,000 units in 500 mls @ 13.063 mls/hr IV TITRATE MICHELLE; Protocol Last Admin: 04/03/20 17:00 Dose: 12 units/kg/hr, 13.063 mls/hr Documented by: BARBER Cosigned by: PREILOR Nitroglycerin/Dextrose (Nitroglycerin 25 Mg/D5w 250 Ml) 25 mg in 250 mls @ 6 mls/hr IV TITRATE MICHELLE; Protocol Last Titration: 04/03/20 17:14 Dose: 15 mcg/min, 9 mls/hr Documented by: Admin: 04/03/20 16:57 Dose: 10 mcg/min, 6 mls/hr Documented by: [email or web address] Sodium Chloride (Saline Flush) 10 ml FLUSH ASDIRECTED PRN PRN Reason: Keep Vein Open Last Admin: 04/03/20 16:26 Dose: 10 ml Documented by: BARBER Labs: Laboratory Tests 04/03/20 04/03/20 04/03/20 Range/Units 15:40 15:40 15:54 WBC 7.9 (4.5-11.0) K/uL RBC 4.03 (3.30-5.50) M/uL Hgb 11.4 L (12.0-15.0) g/dL Hct 35.3 L (36.0-48.0) % MCV 88 (80-98) fL MCH 28 (27-31) pg MCHC 32 (32-36) % Plt Count 270 (150-400) K/uL Neut % (Auto) 63 (36-66) % Lymph % (Auto) 28 (24-44) % [place] % (Auto) 6 (2-6) % Eos % (Auto) 3 (2-4) % Baso % (Auto) 1 (0-1) % PT 10.7 (9.5-12.0) sec INR 0.98 (0.80-1.20) Sodium 137 L (140-148) mmol/L Potassium 3.5 L (3.6-5.2) mmol/L Chloride 104 (100-108) mmol/L Carbon Dioxide 25 (21-32) mmol/L Anion Gap 11.5 (5.0-14.0) mmol/L BUN 13 (7-18) mg/dL Creatinine 0.6 (0.6-1.0) mg/dL Est Cr Clr Drug Dosing 62.67 mL/min Estimated GFR (MDRD) > 60 (>60) Glucose 85 (74-106) mg/dL Calcium 8.8 (8.5-10.1) mg/dL Magnesium 2.2 (1.8-2.4) mg/dL Total Bilirubin 0.3 (0.2-1.0) mg/dL AST 16 (15-37) U/L ALT 18 (12-78) U/L Alkaline Phosphatase 76 (46-116) U/L Troponin I 0.262 H* (0.000-0.056) ng/mL C-Reactive Protein < 0.05 (0.0-0.3) mg/dL NT-Pro-B Natriuret Pep 294 H (5-125) pg/mL Total Protein 6.4 (6.4-8.2) g/dL Albumin 3.6 (3.4-5.0) g/dL Globulin 2.8 (2.3-3.5) g/dL Albumin/Globulin Ratio 1.3 (1.2-2.2) Meds: Medications Generic Name Dose Route Start Last Admin Trade Name Freq PRN Reason Stop Dose Admin Heparin Sodium/Dextrose 25,000 units in 500 mls @ 13.063 mls/hr 04/03/20 16:45 04/03/20 17:00 Heparin 25,000 Units In D5w 500 Ml IV 12 units/kg/hr TITRATE MICHELLE 13.063 mls/hr Administration Protocol 12 UNITS/KG/HR Nitroglycerin/Dextrose 25 mg in 250 mls @ 6 mls/hr 04/03/20 17:00 04/03/20 17:14 Nitroglycerin 25 Mg/D5w 250 Ml IV 15 mcg/min TITRATE MICHELLE 9 mls/hr Titration Protocol 10 MCG/MIN Sodium Chloride 10 ml 04/03/20 15:56 04/03/20 16:26 Saline Flush FLUSH 10 ml ASDIRECTED PRN Administration Keep Vein Open Discontinued Medications Generic Name Dose Route Start Last Admin Trade Name Freq PRN Reason Stop Dose Admin Aspirin 324 mg 04/03/20 16:31 04/03/20 16:47 Aspirin PO 04/03/20 16:32 324 mg ONETIME ONE Administration Heparin Sodium (Porcine) Confirm 04/03/20 16:45 04/03/20 16:50 Heparin Sodium Administered 04/03/20 16:46 Not Given Dose 5,000 units .ROUTE .STK-MED ONE Heparin Sodium (Porcine) 4,000 units 04/03/20 16:48 04/03/20 16:49 Heparin Sodium IVPUSH 04/03/20 16:49 4,000 units ONETIME ONE Administration Departure - Departure Time of Disposition: 17:13 Disposition: DC/Tfer to Other Reason for Transfer *Q: Other (Further care and evaluation of a non-STEMI by cardiology) Clinical Impression: Acute coronary syndrome, Non-STEMI (non-ST elevated myocardial infarction) Referrals: José Luis Bruno MD [Primary Care Provider] - Forms: ED Department Discharge Care Plan Goals: I am arranging transfer the patient to [facility] for further evaluation and care. I discussed the case with the hospitalist, Dr. Grimes who accepts the patient in transfer. Sepsis Event Note (ED) - Evaluation Sepsis Screening Result: No Definite Risk - Focused Exam Vital Signs: Vital Signs Temp Pulse Resp BP Pulse Ox 04/03/20 16:44 67 12 166/85 H 98 04/03/20 15:59 58 L 10 L 136/71 99 04/03/20 15:20 36.6 C 62 12 186/80 H 99 - Problem List & Annotations (1) Non-STEMI (non-ST elevated myocardial infarction) SNOMED Code(s): 36255206 Code(s): I21.4 - NON-ST ELEVATION (NSTEMI) MYOCARDIAL INFARCTION Status: Acute Priority: High Current Visit: Yes - Problem List Review Problem List Initiated/Reviewed/Updated: Yes - My Orders Last 24 Hours: My Active Orders 04/03/20 15:54 Chest 2V [CR] Stat EKG 12 Lead [EK] Routine 04/03/20 15:55 EKG Documentation Completion [RC] ASDIRECTED 04/03/20 15:56 Sodium Chloride 0.9% [Saline Flush] 10 ml FLUSH ASDIRECTED PRN Saline Lock Insert [OM.PC] Routine 04/03/20 16:45 Heparin Sodium/D5W [Heparin 25,000 Units in D5W 500 ML] 25,000 units in 500 ml IV TITRATE 04/03/20 17:00 Nitroglycerin/D5W [Nitroglycerin 25 MG/D5W 250 ML] 25 mg in 250 ml IV TITRATE - Assessment/Plan Last 24 Hours: My Active Orders 04/03/20 15:54 Chest 2V [CR] Stat EKG 12 Lead [EK] Routine 04/03/20 15:55 EKG Documentation Completion [RC] ASDIRECTED 04/03/20 15:56 Sodium Chloride 0.9% [Saline Flush] 10 ml FLUSH ASDIRECTED PRN Saline Lock Insert [OM.PC] Routine 04/03/20 16:45 Heparin Sodium/D5W [Heparin 25,000 Units in D5W 500 ML] 25,000 units in 500 ml IV TITRATE 04/03/20 17:00 Nitroglycerin/D5W [Nitroglycerin 25 MG/D5W 250 ML] 25 mg in 250 ml IV TITRATE Plan: I have arranged for the patient to transfer to [facility] for further evaluation and care by cardiology. I discussed the case with Dr. Grimes, hospitalist production sampler who accepts the patient in transfer. Anticoagulation has been started both with aspirin 324 mg chewed and heparin IV in form of bolus and infusion. Patient remains vitally stable. We will have EMS take her to [facility].
[2020-04-03] MEDS ORDERED: Heparin Sodium/D5W 25,000 UNITS/500 ML BAG IV SCH (16:45)
[2020-04-03] MEDS ORDERED: Heparin Sodium 5,000 Units/ML Vial ONE (16:45)
[2020-04-03] MEDS ORDERED: Heparin Sodium 5,000 Units/ML Vial IVPUSH ONE (16:48)
[2020-04-03] MEDS ORDERED: Nitroglycerin/D5W 25 MG/250 ML BOTTLE IV SCH (17:00)
--- NOTE | 2020-04-04 09:17 | CR ---
CHEST: 2 view CLINICAL HISTORY:Chest pain COMPARISON:August 25, 2019 FINDINGS: The heart size, pulmonary vascularity and hilar structures are normal. No infiltrate effusion or pneumothorax is seen. Lungs are hyperaerated IMPRESSION: Hyperaeration No acute cardiopulmonary process.
== END 2020-04-03 19:18 | disposition other institution (70) ==
LOC: JP.ED 15:13
DX: I21.4 Non-ST elevation (NSTEMI) myocardial infarction (principal); I24.9 Acute ischemic heart disease, unspecified; Z91.040 Latex allergy status; Z88.0 Allergy status to penicillin
CPT/HCPCS: 36415; 71046; 80053; 83735; 83880; 84484; 85025; 85610; 86140; 93005; 96365; 96368; 99285; A9270; J1644; J3490

== ENCOUNTER 2024-10-04 07:27 | Emergency (ER) | payer MEDICARE ==
[2024-10-04] MEDS ORDERED: Sodium Chloride 0.9% 10 ML Syringe FLUSH PRN (07:41)
[2024-10-04 07:54] LABS: BASOPHILS ABSOLUTE AUTO 0.04 K/uL (0.00-0.10); BASOPHILS PERCENT AUTO 0.9 % (0.1-1.3); EOSINOPHILS ABSOLUTE AUTO 0.12 K/uL (0.00-0.40); EOSINOPHILS PERCENT AUTO 2.8 % (0.0-5.4); HEMATOCRIT 35.6 % (34.3-46.0); HEMOGLOBIN 11.9 g/dL (11.2-15.5); IMMATURE GRAN PERCENT AUTO 0.2 % (0.0-0.7); LYMPHOCYTES ABSOLUTE AUTO 1.19 K/uL (0.8-3.3); LYMPHOCYTES PERCENT AUTO 28.1 % (11.4-47.7); MEAN CORPUSCULAR HEMOGLOBIN 30.4 pg (31.6-35.5); MEAN CORPUSCULAR HGB CONC 33.4 g/dL (31.6-35.5); MONOCYTES PERCENT AUTO 7.1 % (3.3-12.6); NEUTROPHILS ABSOLUTE AUTO 2.57 K/uL (1.0-7.6); NEUTROPHILS PERCENT AUTO 60.9 % (40.0-78.1); PLATELET COUNT,PLT 251 K/uL (130-375); RED BLOOD CELL COUNT 3.91 M/uL (3.77-5.24); WHITE BLOOD CELL COUNT,WBC 4.2 K/uL (3.2-11.0)
[2024-10-04 07:57] LABS: IMMATURE GRAN ABSOLUTE AUTO 0.01 K/uL (0.00-0.23)
[2024-10-04 08:16] LABS: A/G RATIO 1.1 (1.2-2.2); ALANINE AMINOTRANSFERASE,ALT 15 U/L (12-78); ALBUMIN 3.4 g/dL (3.4-5.0); ALKALINE PHOSPHATASE 75 U/L (46-116); ANION GAP 5.8 mmol/L (5.0-14.0); ASPARTATE AMNIOTRANSFERASE,AST 16 U/L (15-37); BILIRUBIN TOTAL 0.2 mg/dL (0.2-1.0); BLOOD UREA NITROGEN,BUN 13 mg/dL (7-18); CALCIUM 9.5 mg/dL (8.5-10.1); CARBON DIOXIDE,CO2 30 mmol/L (21-32); CHLORIDE,CL 105 mmol/L (100-108); CREATINE KINASE,CK 70 U/L (26-192); CREATININE 0.8 mg/dL (0.6-1.0); EST CRCL DRUG DOSING (CG) 43.64 mL/min; ESTIMATED GFR 77 mL/min (>60); GLUCOSE RANDOM 102 mg/dL (74-106); POTASSIUM,K 4.4 mmol/L (3.6-5.2); PROTEIN TOTAL,TP 6.5 g/dL (6.4-8.2); SODIUM,NA 141 mmol/L (140-148)
[2024-10-04 08:45] LABS: LYME AB IgG Negative (Negative); LYME AB IgM Negative (Negative)
[2024-10-04] MEDS: Ketorolac 30 MG/ML SDV IM ONE (09:21)
[2024-10-04] MEDS: Carbidopa/Levodopa 25-100 MG Tab PO ONE (09:45)
[2024-10-04] MEDS: Ketorolac 30 MG/ML SDV IVPUSH ONE (09:45)
[2024-10-04 10:02] LABS: APPEARANCE,URINE SLIGHTLY CLOUDY (CLEAR); BILIRUBIN,URINE NEGATIVE (NEGATIVE); COLOR,URINE YELLOW (YELLOW); GLUCOSE,URINE NEGATIVE (NEGATIVE); KETONES,URINE NEGATIVE (NEGATIVE); LEUKOCYTE ESTERASE,URINE SMALL (NEGATIVE); NITRITE,URINE NEGATIVE (NEGATIVE); OCCULT BLOOD,URINE NEGATIVE (NEGATIVE); PROTEIN,URINE NEGATIVE (NEGATIVE); UROBILINOGEN,URINE 0.2 EU/dL (0.2-1.0)
[2024-10-04 10:09] LABS: AMORPHOUS SEDIMENT,URINE MODERATE; BACTERIA,URINE MODERATE; EPITHELIAL CELLS,URINE RARE; MUCUS,URINE NOT SEEN; RBC,URINE NOT SEEN (0-5)
== END 2024-10-04 11:28 | disposition home or self-care (01) ==
LOC: JP.ED 07:27
DX: M62.89 Other specified disorders of muscle (principal); Z79.899 Other long term (current) drug therapy; Z91.040 Latex allergy status; Z88.0 Allergy status to penicillin
CPT/HCPCS: 36415; 80053; 81001; 82550; 83605; 85025; 86618; 87086; 96374; 99285; A9270; J1885